=== PATIENT | female | born 1955 | race Caucasian/White ===

== ENCOUNTER 2023-10-01 17:22 | Inpatient (IN) | payer OTHER ==
[2023-10-01 17:51] VITALS: BMI 23.1
[2023-10-01] MEDS ORDERED: IBUPROFEN 600 MG TABLET (FP) PO PRN (18:06)
[2023-10-01] MEDS ORDERED: BISMUTH SUBSALICYLATE 524 MG/30 ML PO PRN (18:06)
[2023-10-01] MEDS ORDERED: BENZONATATE 200 MG CAPSULE PO PRN (18:06)
[2023-10-01] MEDS ORDERED: ONDANSETRON *ODT* 4 MG TABLET SL PRN (18:06)
[2023-10-01] MEDS ORDERED: LOPERAMIDE HCL 2 MG CAPSULE PO PRN (18:06)
[2023-10-01] MEDS ORDERED: MAG HYDROX/AL HYDROX/SIMETH 30 ML UNIT-DOSE CUP PO PRN (18:06)
[2023-10-01] MEDS ORDERED: POLYETHYLENE GLYCOL (HEALTHYLAX) 3350 17 GM PACKET PO PRN (18:06)
[2023-10-01] MEDS ORDERED: ACETAMINOPHEN 325 MG TABLET (FP) PO PRN (18:06)
[2023-10-01] MEDS ORDERED: MAGNESIUM HYDROX 2400MG/30ML ORAL SUSPENSION 30 ML CUP PO PRN (18:06)
[2023-10-01] MEDS ORDERED: IBUPROFEN 400 MG TABLET (FP) PO PRN (18:06)
[2023-10-01] MEDS ORDERED: NICOTINE POLACRILEX 2 MG LOZENGE BC PRN (18:06)
[2023-10-01] MEDS: NICOTINE POLACRILEX 2 MG GUM BUC PRN (20:41)
[2023-10-01] MEDS: THIAMINE 100 MG TABLET PO SCH (22:53)
[2023-10-01] MEDS: MELATONIN 5 MG TABLETS PO SCH (22:53)
[2023-10-02] MEDS: PRENATAL VITAMINS W/ FOLIC ACID TABLET (FP) PO SCH (09:50)
[2023-10-02 12:01] LABS: HEMATOCRIT 37.4 % (32.4-45.2); HEMOGLOBIN 13.3 GM/dL (10.7-15.3); MCH 35.9 pg (25.7-33.7); MCHC 35.5 g/dl (32.0-36.0); MEAN CELL VOLUME 101.2 fl (80-96); MEAN PLT VOLUME 8.3 fl (7.5-11.1); PLATELET COUNT 148 10^3/uL (134-434); RBC 3.69 M/mm3 (3.60-5.2); RDW 13.5 % (11.6-15.6); WHITE BLOOD COUNT 3.7 K/mm3 (4.0-10.0)
[2023-10-02 12:03] LABS: POTASSIUM 3.6 mmol/L (3.5-5.1)
[2023-10-02 12:10] LABS: CALCIUM 9.4 mg/dL (8.5-10.1)
[2023-10-02 12:12] LABS: ALBUMIN 3.8 g/dl (3.4-5.0)
[2023-10-02 12:13] LABS: BLOOD UREA NITROGEN 9.7 mg/dL (7-18)
[2023-10-02 12:15] LABS: CREATININE 0.6 mg/dL (0.55-1.3); TOT PROT 6.7 g/dl (6.4-8.2)
[2023-10-02] MEDS ORDERED: diazePAM 5 MG TABLET PO PRN (16:05)
[2023-10-02] MEDS: NICOTINE 14 MG/24 HOURS TOPICAL PATCH TD SCH (16:17)
[2023-10-02] MEDS: hydrOXYzine PAMOATE 25 MG CAPSULE (FP) PO PRN (16:18)
[2023-10-02] MEDS: NICOTINE POLACRILEX 4 MG GUM BUC PRN (16:19)
[2023-10-02] MEDS: diazePAM 5 MG TABLET PO SCH (17:13)
[2023-10-03] MEDS: SERTRALINE HCL 50 MG TABLET (FP) PO SCH (10:15)
[2023-10-03] MEDS: guaiFENesin 600 MG TABLET.ER (FP) PO PRN (10:15)
[2023-10-03] MEDS: BENZOCAINE/MENTHOL (CHLORASEPTIC ) LOZENGE MM PRN (22:20)
[2023-10-04] MEDS: diazePAM 5 MG TABLET PO SCH (05:53)
[2023-10-04 09:45] VITALS: RESP 18; TEMP 98.1
[2023-10-04 12:59] VITALS: BP 147/80; PULSE 82
[2023-10-05] MEDS ORDERED: diazePAM 5 MG TABLET PO SCH (06:00)
[2023-10-06] MEDS ORDERED: diazePAM 5 MG TABLET PO ONE (06:00)
== END 2023-10-04 14:00 | disposition home or self-care (01) | DRG 897 ==
LOC: YASAS 17:22 → Y3N 19:44
PROVIDERS: ADMIT Allergy & Immunology; ATTEND Surgery
PROC: HZ2ZZZZ Detoxification Services for Substance Abuse Treatment (ICD-10-PCS; principal; 2023-10-01)
DX: F10.230 Alcohol dependence with withdrawal, uncomplicated (principal); F17.210 Nicotine dependence, cigarettes, uncomplicated; F41.9 Anxiety disorder, unspecified; F32.A Depression, unspecified; F43.10 Post-traumatic stress disorder, unspecified
CPT/HCPCS: 36415; 80053; 80305; 85027; 86780; 93005; 93010